=== PATIENT | male | born 1950 | race Caucasian/White ===

== ENCOUNTER → 2016-08-25 | Outpatient (CLI) | payer MEDICARE, BC | END | disposition home or self-care (01) | LOC: CDC 15:05 | DX: Z01.810 Encounter for preprocedural cardiovascular examination (principal) | CPT/HCPCS: 93000 ==

== ENCOUNTER → 2016-08-26 | Outpatient (CLI) | payer OTHER, BC | END | disposition home or self-care (01) | DX: R26.2 Difficulty in walking, not elsewhere classified (principal); M17.12 Unilateral primary osteoarthritis, left knee; M25.562 Pain in left knee; M25.662 Stiffness of left knee, not elsewhere classified; M62.81 Muscle weakness (generalized) | CPT/HCPCS: 97110 GP; 97150 GO; 97161 GP; 97165 GO; G8978 GP; G8979 GP; G8980 GP; G8987 GO; G8988 GO; G8989 GO ==

== ENCOUNTER → 2016-12-26 | Outpatient (CLI) | payer MEDICARE, BC ==
[~2016-12-26] MED LIST: ACTOS45 MG PO; FEOSOL325 MG PO; GLUCOPHAGE1000 MG PO; LIPITOR20 MG PO
== END | disposition home or self-care (01) ==
LOC: CDC 11:58
DX: Z01.810 Encounter for preprocedural cardiovascular examination (principal)
CPT/HCPCS: 93000

== ENCOUNTER → 2017-08-28 | Outpatient (CLI) | payer MEDICARE, BC ==
[~2017-08-28] MED LIST changes: +ALEVE220 MG PO; +CELECOXIB200 MG PO; +COUMADIN5 MG PO; +DOCUSATE SODIU100 MG PO; +HYDROCODON-ACE1 EAC7 PO; +LOVENOX40 MG/0.4 SC; +MULTIVITAMIN1 EAC2 PO
== END | disposition home or self-care (01) ==
LOC: CDC 11:38
DX: Z01.810 Encounter for preprocedural cardiovascular examination (principal); I49.3 Ventricular premature depolarization
CPT/HCPCS: 93000

== ENCOUNTER 2017-09-20 22:02 | Inpatient (IN) | payer OTHER, BC ==
[~2017-09-20] VITALS: Ht 177.8 cm; Wt 90.0 kg
[2017-09-21 05:53] VITALS: BP 143/70
[2017-09-21 10:21] LABS: HEMATOCRIT 35.8 % (38.0-50.0); MCH 30.9 PG (29.0-34.0); MCHC 32.4 G/DL (30.0-36.0); MCV 95.5 FL (86-99); PLATELET COUNT 162 K/uL (156-360); RBC DIS.WIDTH-CV 13.9 % (11.8-14.6); RBC DIS.WIDTH-SD 49.3 % (39-53); RED BLOOD COUNT 3.75 M/uL (4.00-5.50); WHITE BLOOD COUNT 5.9 K/uL (4.1-10.2)
[2017-09-21 10:26] LABS: HEMOGLOBIN 11.6 G/DL (12.5-16.6)
[2017-09-21 11:57] VITALS: BP 128/81
[2017-09-21 15:55] VITALS: BP 137/63
[2017-09-21 19:47] VITALS: BP 130/79
[2017-09-22 00:30] VITALS: BP 126/60
[2017-09-22 04:17] VITALS: BP 118/61
[2017-09-22 06:00] LABS: HEMATOCRIT 34.1 % (38.0-50.0); HEMOGLOBIN 11.2 G/DL (12.5-16.6); MCV 93.7 FL (86-99)
[2017-09-22 06:27] LABS: CHLORIDE 101 MEQ/L (99-109); CREATININE 0.9 MG/DL (0.6-1.3); GFR ESTIMATE (CALCULATED) > 59 mL/min/ (58.99-99999); GLUCOSE 165 mg/dL (70-99); POTASSIUM 4.4 MEQ/L (3.7-5.4); SODIUM 131 MEQ/L (136-147); UREA NITROGEN (BUN) 16 mg/dL (9-23)
[2017-09-22 07:59] VITALS: BP 130/59
[2017-09-22 11:34] VITALS: BP 132/60
[2017-09-22 15:54] VITALS: BP 130/60
[2017-09-22 20:05] VITALS: BP 127/61
[2017-09-23 00:12] VITALS: BP 126/63
[2017-09-23 04:09] VITALS: BP 121/57
[2017-09-23 06:19] LABS: HEMATOCRIT 35.2 % (38.0-50.0); HEMOGLOBIN 11.7 G/DL (12.5-16.6); MCV 92.1 FL (86-99)
[2017-09-23 08:00] VITALS: BP 117/56
[2017-09-23] MEDS ORDERED: SENNA PLUS TAB1 EACH PO (08:18)
[2017-09-23] MEDS ORDERED: LOVENOX40 MG/0.4 SC (08:19)
[2017-09-23] MEDS ORDERED: CELECOXIB200 MG PO (08:19)
[2017-09-23] MEDS ORDERED: OXYCODONE HCL5 MG PO (08:19)
[2017-09-23 12:14] VITALS: BP 130/62
== END 2017-09-23 13:23 | DRG 470 ==
LOC: ENRESERV 22:02 → 2SOUTH 09-21 02:37 → 3WEST 09-21 05:35 → 2SOUTH 09-21 05:35 → 3WEST 09-21 11:39 → 2SOUTH 09-21 15:50 → 3WEST 09-23 13:23
PROVIDERS: Orthopaedic Surgery
PROC: 0SRC0J9 Replacement of Right Knee Joint with Synthetic Substitute, Cemented, Open Approach (ICD-10-PCS; principal; 2017-09-21)
DX: M17.11 Unilateral primary osteoarthritis, right knee (principal); Z96.652 Presence of left artificial knee joint; E78.00 Pure hypercholesterolemia, unspecified; E11.9 Type 2 diabetes mellitus without complications
CPT/HCPCS: 73560; 80048; 82948; 84295; 85014; 85018; 85027; C1713; J0131; J0690; J1650; J2250; J2405; J2795; J7050; S0020